=== PATIENT | male | born 1980 ===

== ENCOUNTER 2017-02-25 17:44 | Emergency (ER) | payer OTHER ==
[2017-02-25 18:16] VITALS: BMI 25.7
--- NOTE | 2017-02-25 18:17 | ED PDOC ---
HPI: CCC, URI, Sore Throat Time Seen by Provider: 02/25/17 18:09 Chief Complaint (Nursing): Fever Chief Complaint (Provider): Fever History Per: Patient History/Exam Limitations: no limitations Onset/Duration Of Symptoms: Days Current Symptoms Are (Timing): Still Present Additional Complaint(s): 36 y/o male presents to the emergency department with a complaint of a fever, body aches, sore throat, congestion, cough, runny nose, and dizziness for a couple of days. States he took Motrin without the relief of pain. Denies shortness of breath and chest pain. Of note, patient underwent surgery, removal of the upper and lower wisdom teeth from the left side. States today, the right side began to hurt along with reported symptoms. Past Medical History Reviewed: Historical Data, Nursing Documentation, Vital Signs Vital Signs: Last Vital Signs Temp 99.4 F 02/25/17 18:25 Pulse 115 H 02/25/17 18:25 Resp 16 02/25/17 18:25 BP 147/99 H 02/25/17 18:25 Pulse Ox 100 02/25/17 18:25 - Medical History PMH: No Chronic Diseases - Surgical History Surgical History: No Surg Hx - Family History Family History: States: Unknown Family Hx - Living Arrangements Living Arrangements: With Family - Social History Current smoker - smoking cessation education provided: No Alcohol: None Drugs: Denies - Home Medications Home Medications: Ambulatory Orders Medication Instructions Recorded Guaifenesin [Mucinex] 600 mg PO BID #14 [id number] 07/05/16 Ibuprofen [Motrin] 600 mg PO TID 7 Days 02/25/17 - Allergies Allergies/Adverse Reactions: Allergies Allergy/AdvReac Type Severity Reaction Status Date / Time No Known Allergies Allergy Verified 07/05/16 11:18 Review of Systems ROS Statement: Except As Marked, All Systems Reviewed And Found Negative Constitutional: Positive for: Fever, Other (body aches) ENT: Positive for: Nose Discharge, Nose Congestion, Throat Pain (Sore throat) Cardiovascular: Negative for: Chest Pain Respiratory: Negative for: Shortness of Breath Neurological: Positive for: Dizziness Physical Exam - Reviewed Nursing Documentation Reviewed: Yes Vital Signs Reviewed: Yes - Physical Exam Appears: Positive for: Non-toxic, No Acute Distress Head Exam: Positive for: ATRAUMATIC, NORMAL INSPECTION, NORMOCEPHALIC Skin: Positive for: Normal Color, Warm, Dry Eye Exam: Positive for: Normal appearance, EOMI, PERRL. Negative for: Conjunctival injection ENT: Positive for: Nasal Congestion. Negative for: Pharyngeal Erythema Neck: Positive for: Normal, Painless ROM, Supple Cardiovascular/Chest: Positive for: Regular Rate, Rhythm. Negative for: Edema, Murmur Respiratory: Positive for: Normal Breath Sounds. Negative for: Accessory Muscle Use, Respiratory Distress Gastrointestinal/Abdominal: Positive for: Normal Exam, Soft. Negative for: Tenderness Back: Positive for: Normal Inspection. Negative for: L CVA Tenderness, R CVA Tenderness Extremity: Positive for: Normal ROM. 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 Negative for: Motor/Sensory Deficits - Progress ED Course And Treament: 1845: Stable. AAOx3. Pain free. Tolerated PO. Likely uri. Pt. to fu with pcp. Medical Decision Making Medical Decision Making: Time: 18:09 Initial impression: Upper Respiratory Infection Initial plan: --Motrin 600 mg PO --Toradol 15 mg IM --Revaluation Scribe Attestation: Documented by Laurence Carrasquillo, acting as a scribe for Tony Baxter MD. Provider Scribe Attestation: All medical record entries made by the Scribe were at my direction and personally dictated by me. I have reviewed the chart and agree that the record accurately reflects my personal performance of the history, physical exam, medical decision making, and the department course for this patient. I have also personally directed, reviewed, and agree with the discharge instructions and disposition. Disposition - Clinical Impression Clinical Impression: URI (upper respiratory infection) - Patient ED Disposition Is Patient to be Admitted: No Counseled Patient/Family Regarding: Diagnosis, Need For Followup, Rx Given - Disposition Referrals: [facility] [Outside] - 02/27/17 Disposition: Routine/Home Disposition Time: 18:46 Condition: STABLE Additional Instructions: Return if not better in 3 days. Prescriptions: Ibuprofen [Motrin] 600 mg PO TID 7 Days Instructions: Upper Respiratory Infection (ED) Print Language: HEBREW
[2017-02-25 21:24] VITALS: BP 109/63; RESP 16; TEMP 98.8; O2SAT 98
[2017-02-25 21:50] VITALS: PULSE 102
== END 2017-02-25 21:58 | disposition home or self-care (01) ==
LOC: H.ER 17:44
DX: J06.9 Acute upper respiratory infection, unspecified (principal)